=== PATIENT | female | born 1985 | race Caucasian/White ===

== ENCOUNTER 2021-07-27 19:42 | Emergency (ER) | payer MEDICAID ==
[~2021-07-27] VITALS: Ht 167.6 cm; Wt 80.9 kg
[2021-07-27] MEDS ORDERED: aspirin 325mg tablet, delayed-release (Ecotrin) PO ONE (20:00)
[2021-07-27] MEDS ORDERED: apixaban 5mg tablet PO ONE (21:25)
[2021-07-27] MEDS ORDERED: APIX5TAB3 PO ×2 (21:27)
[2021-07-27 21:58] VITALS: BP 126/74
== END 2021-07-27 21:59 | disposition home or self-care (01) ==
LOC: ER 19:42
DX: I82.402 Acute embolism and thrombosis of unspecified deep veins of left lower extremity (principal); M79.662 Pain in left lower leg; K21.9 Gastro-esophageal reflux disease without esophagitis; Z98.890 Other specified postprocedural states; Z79.899 Other long term (current) drug therapy
CPT/HCPCS: 93970; 99284

== ENCOUNTER 2021-12-23 03:17 | Inpatient (IN) | payer MEDICAID ==
[2021-12-23] VITALS (16 sets, daily range): BP systolic 90–119; BP diastolic 34–88
[~2021-12-23] VITALS: Ht 167.6 cm; Wt 90.9 kg
[~2021-12-23 03:17] MED LIST: APIX5TAB3 PO
[2021-12-23 04:15] LABS: URINE HCG NEGATIVE (NEG)
[2021-12-23 04:18] LABS: CLARITY,URINE CLOUDY (Clear); GLUCOSE, URINE NEGATIVE (Neg); KETONES,URINE 40 mg/dl (Neg); LEUKOCYTE ESTERASE ,URINE NEGATIVE (Neg); NITRITES, URINE NEGATIVE (Neg); OCCULT BLOOD,URINE SMALL (Neg); PH,URINE 5.5 (4.8-8.0); PROTEIN,URINE TRACE mg/dl (Neg)
[2021-12-23 04:25] LABS: BASOPHILS % (AUTO) 0.1 % (0-1); EOSINOPHILS # (AUTO) 0.1 X10'3 (0-0.9); EOSINOPHILS % (AUTO) 0.4 % (0-6); HEMATOCRIT 35.5 % (35.0-45.0); HEMOGLOBIN 11.7 g/dl (12.0-16.0); LYMPHOCYTES # (AUTO) 2.4 X10'3 (1.1-4.8); LYMPHOCYTES % (AUTO) 16.7 % (21-51); MEAN CORPUSCULAR HEMOGLOBIN 23.5 PG (27.0-31.0); MEAN CORPUSCULAR HGB CONC 32.9 g/dL (33.0-36.5); MEAN CORPUSCULAR VOLUME 71.5 FL (78-98); MEAN PLATELET VOLUME 7.9 FL (7.4-10.4); MONOCYTES % (AUTO) 7.2 % (2-12); NEUTROPHILS # (AUTO) 10.8 X10'3 (1.8-7.7); NEUTROPHILS % (AUTO) 75.6 % (42-75); PLATELET COUNT 246 X10'3 (140-440); RED BLOOD COUNT 4.96 X10'6 (4.20-5.60); WHITE BLOOD COUNT 14.3 X10'3 (4.5-11.0)
[2021-12-23 04:27] LABS: COLOR,URINE DARK YELLOW (Yellow); UA COLLECTION TYPE CLN CATCH MIDSTREAM; WBC,URINE 0-4 /HPF (0-4)
[2021-12-23 04:28] LABS: BACTERIA,URINE 3+ /HPF (Neg); MUCUS STRANDS MANY /LPF (Neg); RBC,URINE 0-2 /HPF (0-2); SQUAMOUS EPITHELIAL CELL,UR MANY /LPF (FEW)
[2021-12-23 04:34] LABS: ALANINE AMINOTRANSFERASE 18 U/L (12-78); ALBUMIN 3.5 G/DL (3.4-5.0); ALBUMIN/GLOBULIN RATIO 0.8 (1.1-1.5); ALKALINE PHOSPHATASE 104 IU/L (46-116); ANION GAP 14 (8-16); ASPARTATE AMINO TRANSFERASE 22 U/L (10-37); BILIRUBIN,TOTAL 0.7 MG/DL (0.1-1.0); BLOOD UREA NITROGEN 8 MG/DL (7-18); BUN/CREATININE RATIO 10.5 (6.6-38.0); CHLORIDE 101 MMOL/L (99-107); CREATININE 0.76 MG/DL (0.40-0.90); GLUCOSE 98 MG/DL (70-104); LIPASE < 50 U/L (73-393); POTASSIUM 3.5 MMOL/L (3.5-5.1); SODIUM 135 MMOL/L (135-145); TOTAL CARBON DIOXIDE 20.4 MMOL/L (24-32); TOTAL PROTEIN 7.9 G/DL (6.4-8.2); eGFR 87 ML/MIN
[2021-12-23] MEDS ORDERED: TETanus/Pertussis (Acell)/Diphther VAC/PF (Tdap-Adult) 0.5ml syringe IMVAC ONE (08:05)
[2021-12-23] MEDS ORDERED: piperacillin/tazo 3.375gm/50ml 50 ML IV ONE (08:05)
[2021-12-23] MEDS ORDERED: morphine 2 MG/ML inj. syringe IV ONE (08:05)
--- NOTE | 2021-12-23 08:36 | NUR ---
After administered morphine, patient had itching to the left forearm. patient denies any allergies that she knows of. Dr. Smart notified regarding this and assessed patient, stating that she did not need antihistamine at this time. Will continue to assess patient.
[2021-12-23] MEDS ORDERED: ESCI5TAB PO (09:14)
[2021-12-23] MEDS ORDERED: POTASSIUM BICARB 20meq eff tab 20 MEQ TABLET.EFF PO PRN ×2 (09:15)
[2021-12-23] MEDS ORDERED: HYDROcodone/acetaminophen 10/325mg tab PO PRN (09:15)
[2021-12-23] MEDS ORDERED: potassium CL 10mEq/100ml bag 100 ML IV PRN (09:15)
[2021-12-23] MEDS ORDERED: magnesium hydroxide 30ml (MOM) UD suspension PO PRN (09:15)
[2021-12-23] MEDS ORDERED: magnesium 4gm in 100ml NS 100 ML IV PRN (09:15)
[2021-12-23] MEDS ORDERED: magnesium Cl slow-release 64mg tablet PO PRN (09:15)
[2021-12-23] MEDS ORDERED: HYDROcodone/acetaminophen 5mg/325mg tablet PO PRN ×2 (09:15→12:15)
[2021-12-23] MEDS ORDERED: HYDROmorphone/PF 0.2 MG/ML SYRINGE IV PRN (09:15)
[2021-12-23] MEDS ORDERED: HYDROmorphone inj. 0.5 MG/0.5 ML DISP.SYRIN IV PRN (09:15)
[2021-12-23] MEDS ORDERED: magnesium 2GM in 50ml NS 50 ML IV PRN (09:15)
[2021-12-23] MEDS ORDERED: mag hydrox/Alum hydrox/simeth 30ml oral suspension PO PRN (09:15)
[2021-12-23] MEDS ORDERED: acetaminophen 325mg tablet PO PRN ×2 (09:15)
[2021-12-23] MEDS ORDERED: ondansetron/PF 4mg/2ml inj IV PRN ×2 (09:15→11:05)
[2021-12-23] MEDS: normal saline 1000ml 1,000 ML IV SCH ×3 (09:28→23:48)
[2021-12-23] MEDS ORDERED: BUPIVAcaine 0.5% inj/PF 30 ML ONE (10:24)
[2021-12-23] MEDS ORDERED: LIDOcaine 1% 30ml preserv. free vial ONE (10:25)
[2021-12-23] MEDS ORDERED: ringers solution, lacted 1,000 ML IV SCH (11:05)
[2021-12-23] MEDS ORDERED: meperidine/PF 25mg/ml syringe IV PRN ×3 (11:05)
[2021-12-23] MEDS ORDERED: proCHLORperazine 10 MG/2 ml inj IV PRN (11:05)
[2021-12-23] MEDS ORDERED: midazolam 1 mg/ML 2ml injection ONE (11:07)
[2021-12-23] MEDS ORDERED: fentaNYL/PF 50MCG/1 ML 2ML syringe ONE (11:07)
[2021-12-23] MEDS ORDERED: LIDOcaine 2% (20mg/ml) 5ml vial ONE (11:16)
[2021-12-23] MEDS ORDERED: propofol inj 20 ML IV ONE (11:16)
[2021-12-23] MEDS ORDERED: dexamethasone sod phosphate 4mg/ml inj. ONE (11:16)
[2021-12-23] MEDS ORDERED: meperidine/PF 25mg/ml syringe ONE (11:16)
[2021-12-23] MEDS ORDERED: rocuronium 10mg/ml inj IV ONE (11:16)
[2021-12-23] MEDS ORDERED: BUPIVAcaine 0.5% inj/PF 30 ml vial IJ ONE (11:52)
[2021-12-23] MEDS ORDERED: naloxone 0.4 mg/ml inj IV PRN (12:15)
--- NOTE | 2021-12-23 12:30 | NUR ---
Received from OR via BED, accompanied by Anesthesiologist MADISON and report given by Anesthesiolgist. PT IS DROWSY, OXYGENATING WELL ON 10- LPM O2 VIA MASK, NO RESP DISTRESS NOTED. DENIES NAUSEA OR PAIN AT THIS TIME. 3 ABD TROCAR SITES WITH LARGE BANDAIDS, CDI. VSS.
--- NOTE | 2021-12-23 13:35 | NUR ---
Received pt from recovery via bed. VSS pt reports mild low abd discomfort but refuses any pain meds at this time. Call light in reach, bed low, Discussed post op plan of care w/pt and spouse. both verbalize understanding.
--- NOTE | 2021-12-23 13:35 | NUR ---
Report called to receiving nurse. Transferred via BED Belongings WITH S/O. VSS, NAUSEA WAS TREATED WITH ZOFRAN. GOOD RESULTS. TOLERATING SIPS OF WATER. MILD PAIN WHEN PT MOVES BUT DECLINES OFFERS OF PAIN MEDS. TRANSFERRED TO ORTHO FLOOR IN STABLE CONDITION. Special Issues communicated to receiving nurse.
[2021-12-23] MEDS: piperacillin/tazo 3.375gm/50ml 50 ML IV SCH ×2 (16:39→23:48)
--- NOTE | 2021-12-23 18:54 | NUR ---
Problems reprioritized. Patient report given, questions answered & plan of care reviewed with TRAY Francisco.
--- NOTE | 2021-12-23 19:12 | NUR ---
Patient in room ORTHO 4010. I have received report from NIECY FELIZ and had the opportunity to ask questions and assume patient care.
[2021-12-23] MEDS: enoxaparin 30mg/0.3ml syringe SQ SCH (19:20)
[2021-12-23] MEDS: HYDROcodone/acetaminophen 10/325mg tab PO PRN (19:21)
[2021-12-23] MEDS: docusate sod 100mg capsule PO SCH (19:21)
[2021-12-23] MEDS ORDERED: heparin, porcine 5000 units/ml vial SQ SCH (20:00)
[2021-12-23] MEDS: K and/or MAG REPLACEMENT MC SCH (20:00)
[2021-12-23] MEDS ORDERED: temazepam 15mg capsule PO PRN (21:00)
[2021-12-23] MEDS ORDERED: NORE0.3513 PO (21:06)
[2021-12-23] MEDS ORDERED: ESCI-8 PO (21:06)
[2021-12-23] MEDS ORDERED: SEMA0.5P SQ (21:06)
[2021-12-23] MEDS ORDERED: TRAZ-251 PO (21:06)
[2021-12-23] MEDS ORDERED: GABA-530 PO (21:06)
[2021-12-23] MEDS ORDERED: APIX5TAB3 PO (21:06)
[2021-12-24 02:00] VITALS: BP 117/73
[2021-12-24 06:00] VITALS: BP 124/66
--- NOTE | 2021-12-24 06:10 | NUR ---
Problems reprioritized. Patient report given, questions answered & plan of care reviewed with XANDER FELIZ.
--- NOTE | 2021-12-24 06:39 | NUR ---
Patient in room ORTHO 4010A. I have received report from TRAY DURAN and had the opportunity to ask questions and assume patient care.
[2021-12-24 06:45] LABS: BASOPHILS % (AUTO) 0.1 % (0-1); EOSINOPHILS % (AUTO) 0 % (0-6); HEMATOCRIT 34.2 % (35.0-45.0); HEMOGLOBIN 10.7 g/dl (12.0-16.0); LYMPHOCYTES # (AUTO) 1.4 X10'3 (1.1-4.8); LYMPHOCYTES % (AUTO) 9.4 % (21-51); MEAN CORPUSCULAR HEMOGLOBIN 22.7 PG (27.0-31.0); MEAN CORPUSCULAR HGB CONC 31.2 g/dL (33.0-36.5); MEAN CORPUSCULAR VOLUME 72.9 FL (78-98); MEAN PLATELET VOLUME 8.1 FL (7.4-10.4); MONOCYTES % (AUTO) 6.6 % (2-12); NEUTROPHILS # (AUTO) 12.5 X10'3 (1.8-7.7); NEUTROPHILS % (AUTO) 83.9 % (42-75); PLATELET COUNT 257 X10'3 (140-440); RED BLOOD COUNT 4.69 X10'6 (4.20-5.60); RED CELL DISTRIBUTION WIDTH 17.2 % (11.5-14.5); WHITE BLOOD COUNT 14.9 X10'3 (4.5-11.0)
[2021-12-24 07:07] LABS: ALANINE AMINOTRANSFERASE 12 U/L (12-78); ALBUMIN 2.6 G/DL (3.4-5.0); ALBUMIN/GLOBULIN RATIO 0.5 (1.1-1.5); ALKALINE PHOSPHATASE 124 IU/L (46-116); ANION GAP 12 (8-16); ASPARTATE AMINO TRANSFERASE 14 U/L (10-37); BILIRUBIN,TOTAL 0.5 MG/DL (0.1-1.0); BLOOD UREA NITROGEN 7 MG/DL (7-18); BUN/CREATININE RATIO 9.1 (6.6-38.0); CALCIUM 8.7 MG/DL (8.5-10.1); CHLORIDE 105 MMOL/L (99-107); CREATININE 0.77 MG/DL (0.40-0.90); GLUCOSE 105 MG/DL (70-104); MAGNESIUM 1.6 MG/DL (1.5-2.4); POTASSIUM 3.9 MMOL/L (3.5-5.1); SODIUM 140 MMOL/L (135-145); TOTAL CARBON DIOXIDE 23.1 MMOL/L (24-32); TOTAL PROTEIN 7.5 G/DL (6.4-8.2); eGFR > 90 ML/MIN
[2021-12-24] MEDS: K and/or MAG REPLACEMENT MC SCH ×2 (08:00→20:00)
[2021-12-24] MEDS: enoxaparin 30mg/0.3ml syringe SQ SCH ×2 (08:08→20:29)
[2021-12-24] MEDS: docusate sod 100mg capsule PO SCH ×2 (08:08→20:27)
[2021-12-24] MEDS: piperacillin/tazo 3.375gm/50ml 50 ML IV SCH ×3 (08:08→23:41)
[2021-12-24] MEDS: normal saline 1000ml 1,000 ML IV SCH ×2 (08:16→17:26)
[2021-12-24] MEDS: HYDROcodone/acetaminophen 10/325mg tab PO PRN ×3 (09:56→20:26)
[2021-12-24 10:00] VITALS: BP 156/69
[2021-12-24 14:00] VITALS: BP 118/67
[2021-12-24 18:00] VITALS: BP_SYST 107; BP_SYST 117; BP_DIAS 45; BP_DIAS 68
--- NOTE | 2021-12-24 19:00 | NUR ---
Patient is on a regular diet and MD had allowed for family to bring in outside food( [place]). She stated that she ate some but it was too heavy. Offered patient a jello or yoghurt, but pt. declined at this time. Addendum: 12/24/21 at 2240 by Addis Bergman RN Amended: Links added.
--- NOTE | 2021-12-24 19:10 | NUR ---
Problems reprioritized. Patient report given, questions answered & plan of care reviewed with TRAY MEDRANO.
[2021-12-24] MEDS: apixaban 5mg tablet PO SCH (20:27)
[2021-12-24] MEDS: gabapentin 100mg capsule PO SCH (20:27)
[2021-12-24] MEDS ORDERED: traZODone 50mg tablet PO SCH (21:00)
[2021-12-24 22:00] VITALS: BP 105/58
[2021-12-25 06:00] VITALS: BP 104/64
--- NOTE | 2021-12-25 06:23 | NUR ---
Problems reprioritized. Patient report given, questions answered & plan of care reviewed with Betty FELIZ .
[2021-12-25] MEDS: HYDROcodone/acetaminophen 10/325mg tab PO PRN ×3 (06:30→17:03)
[2021-12-25 06:50] LABS: BASOPHILS % (AUTO) 0.2 % (0-1); EOSINOPHILS % (AUTO) 0.6 % (0-6); HEMOGLOBIN 9.6 g/dl (12.0-16.0); LYMPHOCYTES # (AUTO) 2.3 X10'3 (1.1-4.8); LYMPHOCYTES % (AUTO) 28.4 % (21-51); MEAN CORPUSCULAR HEMOGLOBIN 23.2 PG (27.0-31.0); MEAN CORPUSCULAR HGB CONC 31.8 g/dL (33.0-36.5); MEAN CORPUSCULAR VOLUME 72.7 FL (78-98); MEAN PLATELET VOLUME 7.7 FL (7.4-10.4); MONOCYTES # (AUTO) 0.7 X10'3 (0-0.9); MONOCYTES % (AUTO) 8.7 % (2-12); NEUTROPHILS % (AUTO) 62.1 % (42-75); PLATELET COUNT 232 X10'3 (140-440); RED BLOOD COUNT 4.13 X10'6 (4.20-5.60); RED CELL DISTRIBUTION WIDTH 17.4 % (11.5-14.5)
[2021-12-25 07:13] LABS: ALANINE AMINOTRANSFERASE 15 U/L (12-78); ALBUMIN 2.3 G/DL (3.4-5.0); ALBUMIN/GLOBULIN RATIO 0.6 (1.1-1.5); ALKALINE PHOSPHATASE 83 IU/L (46-116); ANION GAP 7 (8-16); ASPARTATE AMINO TRANSFERASE 13 U/L (10-37); BILIRUBIN,TOTAL 0.3 MG/DL (0.1-1.0); BLOOD UREA NITROGEN 9 MG/DL (7-18); BUN/CREATININE RATIO 9.7 (6.6-38.0); CALCIUM 7.8 MG/DL (8.5-10.1); CHLORIDE 110 MMOL/L (99-107); CREATININE 0.93 MG/DL (0.40-0.90); GLUCOSE 92 MG/DL (70-104); MAGNESIUM 1.7 MG/DL (1.5-2.4); POTASSIUM 3.5 MMOL/L (3.5-5.1); SODIUM 141 MMOL/L (135-145); TOTAL CARBON DIOXIDE 24.3 MMOL/L (24-32); TOTAL PROTEIN 5.9 G/DL (6.4-8.2); eGFR 84 ML/MIN
[2021-12-25] MEDS ORDERED: ESCITALOPRAM OXALATE 5 MG TABLET PO SCH (08:00)
[2021-12-25] MEDS ORDERED: NORETHINDRONE 0.35 MG PO SCH (08:00)
[2021-12-25] MEDS: K and/or MAG REPLACEMENT MC SCH (08:00)
[2021-12-25] MEDS: piperacillin/tazo 3.375gm/50ml 50 ML IV SCH ×2 (09:05→14:21)
[2021-12-25] MEDS: docusate sod 100mg capsule PO SCH (09:07)
[2021-12-25] MEDS: gabapentin 100mg capsule PO SCH ×2 (09:07→13:17)
[2021-12-25] MEDS: apixaban 5mg tablet PO SCH (09:07)
[2021-12-25] MEDS: enoxaparin 30mg/0.3ml syringe SQ SCH (09:08)
[2021-12-25 10:00] VITALS: BP 117/73
[2021-12-25] MEDS ORDERED: SEMAGLUTIDE 0.5 MG SQ SCH (10:00)
[2021-12-25] MEDS ORDERED: ketorolac trometh. 30mg/ml inj. IV ONE (17:10)
[2021-12-25] MEDS ORDERED: AMOX-117 PO (17:11)
[2021-12-25] MEDS ORDERED: HYDR-3964 PO (17:11)
[2021-12-25 18:00] VITALS: BP 109/62
--- NOTE | 2021-12-25 18:50 | NUR ---
Patient in room ORTHO 4010. I have received report from Betty Choi and had the opportunity to ask questions and assume patient care.
--- NOTE | 2021-12-25 19:13 | NUR ---
Problems reprioritized. Patient report given, questions answered & plan of care reviewed with TRAY MEDRANO.
--- NOTE | 2021-12-25 20:10 | NUR ---
Patient discharged at 2009. Patient alert, in no pain and lap sites VIK with china without drainage. Patient verified that she and her significant other understood all discharge follow-up instructions. IV was dc'd and patient wheeled down to lobby with all her belongings and then into private vehicle to go home.
== END 2021-12-25 20:10 | disposition home or self-care (01) | DRG 233 ==
LOC: ER 03:17 → ED HOLD 09:16 → PACU 12:10 → ORTHO 4S 13:25
PROVIDERS: ADMIT Internal Medicine; ATTEND Internal Medicine
PROC: 8E0W4CZ Robotic Assisted Procedure of Trunk Region, Percutaneous Endoscopic Approach (ICD-10-PCS; 2021-12-23)
PROC: 0W9G4ZZ Drainage of Peritoneal Cavity, Percutaneous Endoscopic Approach (ICD-10-PCS; 2021-12-23)
PROC: 3E0234Z Introduction of Serum, Toxoid and Vaccine into Muscle, Percutaneous Approach (ICD-10-PCS; 2021-12-23)
PROC: 0DTJ4ZZ Resection of Appendix, Percutaneous Endoscopic Approach (ICD-10-PCS; principal; 2021-12-23 10:52)
DX: K35.33 Acute appendicitis with perforation, localized peritonitis, and gangrene, with abscess (principal); D64.9 Anemia, unspecified; F32.A Depression, unspecified; Z20.822 Contact with and (suspected) exposure to COVID-19; F41.9 Anxiety disorder, unspecified; G47.00 Insomnia, unspecified; K21.9 Gastro-esophageal reflux disease without esophagitis; Z79.01 Long term (current) use of anticoagulants; Z86.718 Personal history of other venous thrombosis and embolism; Z87.891 Personal history of nicotine dependence; Z98.891 History of uterine scar from previous surgery; Z23 Encounter for immunization; Z88.5 Allergy status to narcotic agent; Z79.899 Other long term (current) drug therapy
CPT/HCPCS: 36415; 74176; 80053; 81001; 81025; 83605; 83690; 83735; 84145; 85025; 87040; 87081; 87635; 90715; 99285; A4215; A4618; C9803; G0378; J1100; J1650; J1885; J2175; J2250; J2270; J2405; J2543; J2704; J3010; J3490; J7030; S0020

== ENCOUNTER 2022-03-11 13:18 | Emergency (ER) | payer MEDICAID ==
[~2022-03-11] VITALS: Ht 167.6 cm; Wt 90.9 kg
[~2022-03-11 13:18] MED LIST changes: +ESCI-8 PO; +GABA-530 PO; +HYDR-3964 PO; +NORE0.3513 PO; +SEMA0.5P SQ; +TRAZ-251 PO
[2022-03-11 13:26] VITALS: BP 126/80
[2022-03-11] MEDS ORDERED: dexamethasone sod phosphate 10mg/ml inj IM STA (14:31)
[2022-03-11] MEDS ORDERED: orphenadrine citrate 60mg/2ml inj. IM ONE (14:35)
[2022-03-11] MEDS ORDERED: ORPH100T2 PO (14:37)
[2022-03-11] MEDS ORDERED: METH4TAB3 PO (14:37)
== END 2022-03-11 15:13 | disposition home or self-care (01) ==
LOC: ER 13:19
DX: M25.512 Pain in left shoulder (principal); K21.9 Gastro-esophageal reflux disease without esophagitis; Z88.5 Allergy status to narcotic agent
CPT/HCPCS: 96372; 99283; J1100; A4565

== ENCOUNTER 2024-01-12 17:16 | Emergency (ER) | payer MEDICAID, OTHER ==
[~2024-01-12] VITALS: Ht 167.6 cm; Wt 80.6 kg
[~2024-01-12 17:16] MED LIST changes: +METH4TAB3 PO; +ORPH100T4 PO
[2024-01-12 18:56] VITALS: TEMP 98.6
[2024-01-12 19:39] VITALS: BP 106/69; PULSE 63; RESP 16; O2SAT 100
== END 2024-01-12 19:39 | disposition home or self-care (01) ==
LOC: ER 17:16
DX: L59.0 Erythema ab igne [dermatitis ab igne] (principal); K21.9 Gastro-esophageal reflux disease without esophagitis; M79.661 Pain in right lower leg; Z98.890 Other specified postprocedural states
CPT/HCPCS: 93971; 99284

== ENCOUNTER 2024-10-26 17:45 | Emergency (ER) | payer OTHER ==
[~2024-10-26] VITALS: Ht 167.6 cm; Wt 85.5 kg
[~2024-10-26 17:45] MED LIST changes: -ESCI-8 PO; -GABA-530 PO; -HYDR-3964 PO; -METH4TAB3 PO; -NORE0.3513 PO; -ORPH100T4 PO; -SEMA0.5P SQ; -TRAZ-251 PO
[2024-10-26 18:02] VITALS: BP 130/68; PULSE 72; RESP 18; TEMP 97.8; O2SAT 100
== END 2024-10-26 20:45 | disposition left against medical advice (07) ==
LOC: ER 17:46
DX: M79.605 Pain in left leg (principal); M79.604 Pain in right leg; Z88.5 Allergy status to narcotic agent; Z53.21 Procedure and treatment not carried out due to patient leaving prior to being seen by health care provider